=== PATIENT | male | born 1950 | race Caucasian/White ===

== ENCOUNTER 2022-03-16 11:24 | Emergency (ER) | payer OTHER, SELFPAY ==
[2022-03-16 11:34] VITALS: BP 152/91; PULSE 87; RESP 20; TEMP 36.3; O2SAT 96; BMI 42.4
--- NOTE | 2022-03-16 11:41 | DI.RAD.S_ITS ---
PROCEDURE: XR KNEE LT 3V INDICATIONS: pain. TECHNIQUE: 3 views of the knee were acquired. COMPARISON: None. FINDINGS: Bones: No fractures or dislocations. No suspicious bony lesions. Tricompartment osteophytes. Tricompartment joint space loss. Soft tissues: Moderate joint effusion. No suspicious soft tissue calcifications. IMPRESSION: Degenerative arthritis, knee joint effusion. No evidence acute bony abnormality of the left knee. Comment: If clinically suspect internal derangement, knee MRI may be helpful. Dictated by: Angel Mora M.D. on 03/16/2022 at 12:02 Approved by: Angel Moar M.D. on 03/16/2022 at 12:03
--- NOTE | 2022-03-16 14:10 | ED_ITS ---
HPI - Extremity Problem General Chief complaint: Extremity Problem,Nontraumatic Stated complaint: outside of lt knee did something to it Time Seen by Provider: 03/16/22 13:09 Source: patient Mode of arrival: Family Vehicle History of Present Illness HPI Narrative: This is a 71-year-old male with history of atrial flutter and atrial fibrillation, two weeks ago with AFib with RVR and was worked up for a CVA without findings of one, anticoagulated on warfarin and presents to the emergency department for left-sided knee pain and sensation of instability on walks and this started yesterday. Patient denies a history of knee pain in the past but endorses having a history of arthritis, patient states that his INR was elevated two days ago to 3.3, he is on reduced warfarin dosing of 5 mg for four days. His daily normal dosing is 7 mg daily. States that he has not had any new trauma of his left knee, complains that is worse in the morning and after periods of rest, feel stiff, when ambulating he endorses feeling of instability. He denies any sensation changes, fever, medial or lateral pain, states that is in the middle and feels very sore. He has tried Tylenol, Voltaren gel, states that he has tried oxycodone which also did not help much for his pain. Patient denies any redness, swelling, streaking, or concern for infection. Patient denies any new lower extremity edema, denies any shortness of breath, chest pain difficulty breathing or symptoms of illness. Related Data Home Medications Medication Instructions Recorded Confirmed aspirin 81 mg chewable tablet ##0 08/24/16 atorvastatin 10 mg tablet (Lipitor) ##0 08/24/16 calcium citrate 200 mg (950 mg) ##0 08/24/16 tablet (Calcitrate) hydrochlorothiazide 12.5 mg capsule ##0 08/24/16 multivitamin (Multiple Vitamins ##0 08/24/16 tablet) Previous Rx's Medication Instructions Recorded gabapentin 300 mg capsule 300 mg PO QHS #30 caps 12/02/16 (Neurontin) hydrocodone 5 mg-acetaminophen 325 1 tab PO Q6H PRN #15 tabs 12/02/16 mg tablet ([place]) diclofenac sodium 3 % topical gel 1 applic topical BID PRN knee pain 03/16/22 #100 grams hydrocodone 5 mg-acetaminophen 325 1 tab PO BID PRN pain #14 tabs 03/16/22 mg tablet Allergies Allergy/AdvReac Type Severity Reaction Status Date / Time Sulfa (Sulfonamide Allergy Unknown Can't Verified 03/16/22 11:39 Antibiotics) remmeber, [SULFA (SULFONAMIDE maybe ANTIBIOTICS)] swelling. narcotic meds Allergy Unknown hallucinati Uncoded 03/16/22 11:39 ons Review of Systems Review of Systems Narrative: General: denies fever, chills, malaise, sweats, fatigue Head/Neck: denies headache, neck pain, dizziness Eyes: denies visual changes, eye pain Cardio: denies chest pain, palpitations, edema Respiratory: denies dyspnea, cough, orthopnea GI: denies abdominal pain, nausea, vomiting, or diarrhea : denies dysuria, hematuria, urinary retention, frequency or incontinence MSK: denies joint pain, muscle weakness Skin: denies rash, itching, skin lesions or other Neuro: denies numbness, tingling Exam Narrative Exam Narrative: Independently reviewed vitals signs and nursing notes. General: cooperative, comfortable, in no acute distress, well groomed, overweight, using a walker to ambulate and limping on his left leg Head: atraumatic, symmetrical facial expressions Neck: supple Eyes: equal round and reactive, EOMI, conjunctiva normal Nose: nares patent, no rhinorrhea Mouth/Throat: moist mucus membranes Cardiovascular: regular rate and rhythm, S1-S2 without murmur, no peripheral edema, warm extremities Respiratory: normal effort, able to speak in complete sentences, no audible wheezing, stridor, or rales. No retractions or tachypnea. GI: abdomen soft, nontender to palpation, nondistended, no masses, no exquisite tenderness with exam, without guarding or rebound. MSK: moves all extremities, neurovascularly intact, no weakness, normal tone, no discoloration or erythema notable to left knee, is mildly enlarged however difficult to evaluate suprapatellar edema or not. No tenderness over LCL, MCL, patellar tendon, Nancie test negative. Distal PT and DP pulses are palpable, cap refills brisk, extremities warm without lower extremity edema. Skin: brisk capillary refill, no rash, no erythema Neuro: normal speech and cognition, A&O x3 Psych: mental status is grossly normal, congruent mood, normal affect, pleasant and cooperative Initial Vital Signs Initial Vital Signs: Vital Signs Temperature 97.3 F L 03/16/22 11:34 Pulse Rate 87 03/16/22 11:34 Respiratory Rate 20 03/16/22 11:34 Blood Pressure 152/91 H 03/16/22 11:34 Pulse Oximetry 96 03/16/22 11:34 Oxygen Delivery Method 03/16/22 11:34 Course Orders Ordered: Discontinued Medications Hydrocodone Bitart/Acetaminophen (Hydrocodone/Acet 5/325 Tablet) 1 tab PO NOW ONE Stop: 03/16/22 13:28 Last Admin: 03/16/22 14:13 Dose: 1 tab Documented By: BEAN Vital Signs Vital signs: Vital Signs - 8 hr 03/16/22 15:04 Pulse Rate 81 Respiratory Rate 18 Blood Pressure 132/78 Pulse Oximetry 96 Oxygen Delivery Method Room Air MDM - Extremity (Nontraumatic) Lab Data Lab results narrative: INR is elevated at 3.9 Labs: Lab Results 03/16/22 Range/Units 14:40 PT 45.5 H (10.1-12.7) SECONDS INR 3.9 H (0.9-1.3) Imaging Data Extremity x-ray #1: Radiologist's Impression: PROCEDURE:? XR KNEE LT 3V ? INDICATIONS:? pain. ? TECHNIQUE:? 3 views of the knee were acquired.? ? COMPARISON:? None. ? FINDINGS:? ? Bones:? No fractures or dislocations.? No suspicious bony lesions.? Tricompartment osteophytes.? Tricompartment joint space loss. ? Soft tissues:? Moderate joint effusion.? No suspicious soft tissue calcifications.? ? ? IMPRESSION:? Degenerative arthritis, knee joint effusion.? No evidence acute bony abnormality of the left knee. ? Comment:? If clinically suspect internal derangement, knee MRI may be helpful. ? ? Dictated by: Angel Mora M.D. on 03/16/2022 at 12:02 ? ? Approved by: Angel Moar M.D. on 03/16/2022 at 12:03 ? [facility] Narrative Medical decision making narrative: This is a 71-year-old male who presents to the emergency department for left- sided knee pain which he states was painful yesterday when he woke up and is worse today after ambulating. Patient has a history atrial fibrillation with recent AFib with RVR two weeks ago with a heart rate over 120, patient had to have his metoprolol increased to double what he was on previously to get his heart rate down and patient endorses feeling weak, having headache and feeling crummy due to the increase of his metoprolol dosing. Since this happened, patient states his INR was elevated two days ago at 3.3, he states this is not happened before, he normally takes 7 mg of warfarin daily however he has been on 5 mg for the last two days for this elevated INR. Today his INR is 3.9. Con sultation with the anticoagulation clinic at [facility] and was transferred to the pharmacist to discuss whether not to treat patient with warfarin, she was recommending that I continue dosing at 4 mg but I disagree with this, and encouraging him to hold his warfarin tonight, hold it tomorrow night, had his INR drawn on Saturday at any lab that he can not find if he can, I gave him a written order to have his INR drawn if he can find this. Otherwise to also hold his warfarin Saturday night and go to his scheduled INR draw on Saturday, this will hopefully get him into therapeutic range so that can resume his warfarin. Patient endorses undesirable symptoms from his high doses of metoprolol including fatigue, headache, feeling slowed down. I encouraged patient to stay hydrated, return to the emergency department for any new or worsening symptoms, his left knee was wrapped in a thick Marcello bandage, he has a walker, cane, and walking sticks for assistive walking devices. Patient's knee x-ray shows degenerative osteoarthritis, and a moderate effusion without any bony abnormality. I have Encouraged him to follow-up with orthopedics in 1-2 weeks for evaluation. First to treat his supratherapeutic INR, avoid falling, use an assistive device for ambulation at all times, keep his knee wrapped in Marcello bandage to help support it, decrease ambulation to ambulating with weight-bearing as tolerated and light mobility around the house instead of long walks to help prevent his arthritic flare from worsening. This could be hemarthrosis due to his elevated INR, he does not have any trauma history with this knee, this is most likely a joint effusion but could also be blood. Patient was given strict return precautions to return to the emergency department for any bleeding anywhere, any worsening pain or swelling that is causing worsening sensation or a considerable fall risk. Patient understands to hold his warfarin tonight, tomorrow, and Saturday night and will have his INR d rawn on Saturday. Otherwise, patient understands that we can draw his INR here in the emergency department and recheck him if he presents in the emergency department. Patient states understanding, he was given diclofenac gel for topical remedy and comfort, hydrocodone for knee pain, and encouraged him to use Tylenol in addition to this but do not go beyond 3 g in 24 hours. Patient is appropriate and amenable to discharge home. Vital signs are stable on repeat examination is unremarkable. Patient has been informed of results. Patient has been given strict return to ER precautions for any new or worsening symptoms. Patient understands to follow up closely with outpatient providers as instructed. Patient understands plan and agrees to discharge home. All questions and concerns answered at this time. Discharge Plan Departure Patient Disposition: Home Clinical Impression: Supratherapeutic INR, Effusion of knee joint, left Degenerative joint disease of knee, left Qualifiers: Osteoarthritis type: primary Qualified Code(s): M17.12 - Unilateral primary osteoarthritis, left knee Instructions: Osteoarthritis, DI for Arthralgia, DI for Knee Effusion Activity Restrictions/Additional Instructions: *You have been diagnosed with degenerative arthritis and a knee joint effusion of your left knee, there was no evidence of acute bony abnormality of the left knee on x-ray. Please use a thick Marcello bandage to help stabilize your knee especially when ambulating, also use an assistive walking device like a cane or walker so that you are not continuing to flare up a flare. Try to be nice to your knee, and do gentle walking without overdoing it for short periods of time frequently. Ice can be helpful, I will send a stronger form of Voltaren gel to your pharmacy to try. Please follow-up with [facility] about the future of your left knee if it does not improve in the next couple of days. Your INR today is 3.9. Please hold your warfarin for the weekend. Please have your INR drawn on Saturday. Please do not take any warfarin until you have had your INR drawn, if you can find a lab open on Saturday, please go to one and have it checked, you may go there tomorrow if your itching to know what it is but I do not believe it will be less than three. Do not worry about it too much, I just want to prevent it from getting any higher. Thank you for your patience today, sorry it was a long day. If anything is worrisome, please come back to the emergency department. *What to do: *Please continue to take your regular medications as directed. [x ] New medication prescriptions sent to your pharmacy: [[facility] ] [ ] New medication written as a paper prescription [ ] No new medications given *Please follow up with your primary care provider in 2-3 days, call for an appointment. Let them know you were seen in the Emergency Department and that we asked that you be seen for follow-up. We will electronically transmit a record of today's note if your PCP is in our system *If you do not have a primary care provider please contact [phone] to establish care with one of the [facility] primary care providers. *Return to Emergency Department if you should have any new, worsening or concerning symptoms, such as [fever greater than 101F, chills, worsening pain, persistent vomiting or other bothersome symptoms] Prescriptions: New hydrocodone-acetaminophen 5-325 mg tablet 1 tab PO BID PRN (Reason: pain) Qty: 14 0RF diclofenac sodium 3 % gel 1 applic topical BID PRN (Reason: knee pain) Qty: 100 0RF Rx Instructions: Please apply to left knee up to 4 times daily as needed for knee pain. Please do not apply to multiple joints at the same time. No Action multivitamin [Multiple Vitamins] tablet Qty: 0 atorvastatin [Lipitor] 10 mg tablet Qty: 0 hydrochlorothiazide 12.5 mg capsule Qty: 0 aspirin 81 mg tablet,chewable Qty: 0 calcium citrate [Calcitrate] 200 mg (950 mg) tablet Qty: 0 hydrocodone-acetaminophen [[place]] 5 MG/325 MG tablet 1 tab PO Q6H PRNQty: 15 0RF gabapentin [Neurontin] 300 MG capsule 300 mg PO QHS Qty: 30 0RF Referrals: [facility] [Provider Group] - 5-7 days Visit Report Forms: Patient Portal/API
[2022-03-16] MEDS: HYDROCODONE/ACET 5/325 TABLET 1 TAB PO (14:13)
[2022-03-16 14:54] LABS: INR 3.9 (0.9-1.3); Prothrombin Time 45.5 SECONDS (10.1-12.7)
[2022-03-16 15:04] VITALS: BP 132/78; PULSE 81; RESP 18; O2SAT 96
== END 2022-03-16 15:13 | disposition home or self-care (01) ==
PROVIDERS: Emergency Provider Nurse Practitioner Critical Care Medicine
DX: R79.1 Abnormal coagulation profile (principal); M25.462 Effusion, left knee; M17.12 Unilateral primary osteoarthritis, left knee
CPT/HCPCS: 73562; 85610; 99283

== ENCOUNTER → 2024-03-13 12:01 | Outpatient (CLI) | payer OTHER, SELFPAY ==
--- NOTE | 2024-03-13 12:02 | DI.RAD.S_ITS ---
PROCEDURE: XR LUMBAR SPINE 2-3V INDICATIONS: Lumbar pain TECHNIQUE: 3 views of the lumbar spine were acquired. COMPARISON: None. FINDINGS: Bones: 5 [id number] vertebrae are present. Convex left scoliosis, Marte angle of 18?, centered at L2. No vertebral body compression fractures. No suspicious bony lesions. Grade 1 retrolisthesis of L2 on L3 and L1 on L2. Severe disc height loss at L3-4, L2-3. Moderate to severe disc height loss at remaining levels. Diffuse facet arthrosis. Soft tissues: Overlying bowel gas pattern is normal. No suspicious soft tissue calcifications. Prior hernia repair and cholecystectomy clips. IMPRESSION: Moderate to severe, multilevel degenerative disc disease and diffuse facet arthrosis. Convex left scoliosis. Dictated by: Jens Louis M.D. on 03/13/2024 at 13:24 Approved by: Jens Louis M.D. on 03/13/2024 at 13:54
== END ==
PROVIDERS: Referring Provider Nurse Practitioner Family; Visit Provider Nurse Practitioner Family
DX: S39.012A Strain of muscle, fascia and tendon of lower back, initial encounter (principal); M47.816 Spondylosis without myelopathy or radiculopathy, lumbar region; M51.36 Other intervertebral disc degeneration, lumbar region; M41.9 Scoliosis, unspecified; X58.XXXA Exposure to other specified factors, initial encounter
CPT/HCPCS: 72100

== ENCOUNTER 2024-04-07 23:16 | Emergency (ER) | payer OTHER, SELFPAY ==
[2024-04-07 23:37] VITALS: BP 164/86; PULSE 67; RESP 19; TEMP 36.9; O2SAT 98; BMI 44.0
[2024-04-08 02:26] VITALS: BP 171/91; PULSE 72; RESP 18; TEMP 36.6; O2SAT 99
--- NOTE | 2024-04-08 02:26 | ED_ITS ---
HPI - Back Pain/Injury General Chief Complaint: Back Pain/Injury Stated Complaint: severe back pain Time Seen by Provider: 04/08/24 02:25 Source: patient History of Present Illness HPI Narrative: 74-year-old male with a history of atrial flutter and atrial fibrillation on warfarin who presents with complaint of acute on chronic low back pain. Patient has had back pain increasing for over a month. He did not have any trauma falls or injuries. Patient had x-rays at an urgent Care was told that he had spinal stenosis on his x-rays. Patient notes that has gone to PT for times after seeing his primary care physician. Saw them yesterday or Saturday04/07/2024 had physical therapy was increasing his pain while he was actively involved. Patient was told by his PT that he would likely benefit from cortisone shots. Patient notes that his pain has improved with prednisone, he had 6 days' worth about 3 or 4 weeks ago. Stopped for about a week and was put on a tapering dose by his primary care physician. Has since stopped that and pain has increased again. He is taken Tylenol up to 3000 mg in 24 hours. He is normally on gabapentin and had his dose doubled in his now taking 300 mg twice daily by his primary care physician. He has been referred to Dr. Salamanca for his back but just received the referral in the mail yesterday. States no fevers or chills. States does have some numbness and tingling going down his right leg, he states it is pinky toe felt like it had maybe fallen off yesterday. He notes when he walks for long periods of time both legs feel sort of tingling at the bottom. Pain has been increased down the right side. He states left sides actually improved with physical therapy. Patient states no loss of bowel or bladder control, no saddle anesthesia. He does note he was feeling nauseated this evening but states he thinks might be from the pain. He does note he was seated in the waiting room for some time and that has also increased his pain this evening. Last dose of Tylenol was at 7:30 p.m.. Related Data Home Medications Medication Instructions Recorded Confirmed calcium citrate 200 mg (950 mg) ##0 08/24/16 03/16/24 tablet (Calcitrate) hydrochlorothiazide 12.5 mg capsule ##0 08/24/16 03/16/24 multivitamin (Multiple Vitamins ##0 08/24/16 03/16/24 tablet) atorvastatin 20 mg tablet 20 mg PO DAILY 03/13/24 03/16/24 calcipotriene 0.005 % topical cream 1 applic topical QAM 03/13/24 03/16/24 fluorouracil 5 % topical cream 1 applic topical BID 03/13/24 03/16/24 lisinopril 5 mg tablet 5 mg PO DAILY 03/13/24 03/16/24 metoprolol tartrate 25 mg tablet 25 mg PO BID 03/13/24 03/16/24 triamcinolone acetonide 0.1 % 1 applic topical 03/13/24 03/16/24 topical ointment warfarin 2 mg tablet mg PO 03/13/24 03/16/24 warfarin 5 mg tablet 5 mg PO DAILY 03/13/24 03/16/24 Previous Rx's Medication Instructions Recorded gabapentin 300 mg capsule 300 mg PO QHS #30 caps 12/02/16 (Neurontin) hydrocodone 5 mg-acetaminophen 325 1 tab PO Q6H PRN #15 tabs 12/02/16 mg tablet ([place]) diclofenac sodium 3 % topical gel 1 applic topical BID PRN knee pain 03/16/22 #100 grams hydrocodone 5 mg-acetaminophen 325 1 tab PO BID PRN pain #14 tabs 03/16/22 mg tablet gabapentin 300 mg capsule 300 mg PO Q8H #30 caps 04/08/24 prednisone 10 mg tablets in a dose See Rx Instructions PO .COMPLEX 04/08/24 pack #21 ea tramadol 50 mg tablet 50 mg PO Q6H PRN pain #10 tabs 04/08/24 Allergies Allergy/AdvReac Type Severity Reaction Status Date / Time Sulfa (Sulfonamide Allergy Unknown Can't Verified 03/16/24 13:08 Antibiotics) remmeber, [SULFA (SULFONAMIDE maybe ANTIBIOTICS)] swelling. narcotic meds Allergy Unknown hallucinati Uncoded 03/16/24 13:08 ons Review of Systems Review of Systems ROS Unobtainable: All systems reviewed & are unremarkable except as noted in HPI and below Patient History Social History Smoking Status: Never smoker Smoking Status: Never smoker alcohol intake frequency: a few times a month Substance Use Type: does not use Exam Narrative Exam Narrative: GENERAL: Alert and oriented x three, obese male in moderate distress. HEENT: Head normocephalic, atraumatic, EOMI, pupils reactive, face symmetric, moist mucous membranes NECK: Supple, full range of motion CARDIOVASCULAR: Regular rate and rhythm without murmurs, rubs or gallops. RESPIRATORY: Breath sounds equal bilaterally, no wheezes rales or rhonchi. ABDOMEN: Soft, nontender. Normoactive bowel sounds all 4 quadrants. No guarding or rebound, rigidity, no mass : No CVA tenderness BACK: No cervical, thoracic or lumbar vertebral point tenderness. Patient has decreased range of motion. Patient's gait is [antalgic/normal]. Rectal exam is deferred. Muscle strength is 5/5 in lower extremities, although slightly decreased dorsiflexion on the right. DTRs 2/floor bilateral lower extremities. Dorsalis pedis and tibialis pulses are 2+ and lower extremities. Sensation is intact in the lower extremities. EXTREMITIES: Normal range of motion, no clubbing or edema. Neurovascularly intact NEUROLOGICAL: Cranial nerves II through XII grossly intact. Moving all extremities SKIN: Warm, dry, no petechiae, no rashes or lesions. Initial Vital Signs Initial Vital Signs: Vital Signs Temperature 98.4 F 04/07/24 23:37 Pulse Rate 67 04/07/24 23:37 Respiratory Rate 19 04/07/24 23:37 Blood Pressure 164/86 H 04/07/24 23:37 Pulse Oximetry 98 04/07/24 23:37 Oxygen Delivery Method Room Air 04/07/24 23:37 Course Orders Ordered: Discontinued Medications Acetaminophen (Acetaminophen 325 Mg Tablet) 975 mg PO NOW ONE Stop: 04/08/24 02:50 Last Admin: 04/08/24 03:14 Dose: 975 mg Documented By: NORMA Ondansetron HCl (Ondansetron 4 Mg Odt) 4 mg SL NOW ONE Stop: 04/08/24 02:50 Last Admin: 04/08/24 03:15 Dose: Not Given Documented By: NORMA Prednisone (Prednisone 20 Mg Tablet) 60 mg PO NOW ONE Stop: 04/08/24 02:50 Last Admin: 04/08/24 03:14 Dose: 60 mg Documented By: NORMA Tramadol HCl (Tramadol 50 Mg Tablet) 50 mg PO NOW ONE Stop: 04/08/24 03:37 Last Admin: 04/08/24 03:41 Dose: 50 mg Documented By: MAUREEN Vital Signs Vital signs: Vital Signs - 8 hr 04/07/24 23:37 04/08/24 02:26 04/08/24 03:47 Temperature 98.4 F 97.9 F Pulse Rate 67 72 70 Respiratory Rate 19 18 18 Blood Pressure 164/86 H 171/91 H 141/89 H Pulse Oximetry 98 99 97 Oxygen Delivery Method Room Air Room Air Room Air MDM - Back Pain/Injury MDM Narrative Medical decision making narrative: 74-year-old with worsening low back pain with radicular symptoms. Patient does not have any red flag symptoms felt necessitate MRI emergently or emergent surgery. He is in process of setting up referral to follow up for his back. He has had improvement when he has been on prednisone but when it has been stopped symptoms return. He has been taking Tylenol up to 3000 mg daily. He just had his gabapentin increased to 300 mg b.i.d.. States he does not tolerate narcotics well they made him hallucinate at with IV narcotics feel very weird at with oral narcotics. Discussed with patient he would like to return home, we will give a dose of Tylenol here, initial dose of oral prednisone with a tapering prescription. Discussed can also increase his gabapentin to see if this is helpful for his symptoms and need for follow-up. Given short course of oral narcotics but to use with caution as patient has had hallucinations in the past with IV narcotics and felt ?weird? with oral narcotics in the past. Did discuss red flag symptoms and reasons to return emergently. Discharge Plan Departure Patient Disposition: Home Clinical Impression: Low back pain Instructions: DI for Low Back Pain Activity Restrictions/Additional Instructions: Follow-up for recheck I do think you would benefit from interventions on your back. Please follow up with Dr. Salamanca. You can take Tylenol up to a 1000 mg every 6 hours as needed. Take oral steroids as prescribed. You can increase your gabapentin up to 300 mg three times daily, if needed you can increase again to 600mg three times daily. If this is inadequate to contact your primary care physician and they can titrate upwards as needed. You can take tramadol 1 tablet every 6 hours as needed for pain. This medication can make you sleepy do not drive, perform hazardous activities or make any major decisions while taking it. This medication will make you constipated please take a stool softener once to twice daily until stools are soft and regular. Prescription sent to [facility] in [place]. Please return for fevers, rapidly worsening symptoms, new weakness, loss of bowel or bladder control, saddle anesthesia or numbness in your groin, if you can not lift or move her leg or other new or concerning changes. Prescriptions: New prednisone 10 mg tablets,dose pack See Rx Instructions .ROUTE .COMPLEX Qty: 21 0RF Rx Instructions: 6 tabs p.o. x1 day, then 5 tabs p.o. x1 day, then 4 tablets p.o. x1 day, then 3 tabs p.o. x1 day, then 2 tabs p.o. x1 day, then 1 tab p.o. x1 day gabapentin 300 mg capsule 300 mg PO Q8H Qty: 30 0RF tramadol 50 mg tablet 50 mg PO Q6H PRN (Reason: pain) Qty: 10 0RF No Action warfarin 2 mg tablet PO metoprolol tartrate 25 mg tablet 25 mg PO BID atorvastatin 20 mg tablet 20 mg PO DAILY warfarin 5 mg tablet 5 mg PO DAILY lisinopril 5 mg tablet 5 mg PO DAILY calcipotriene 0.005 % cream 1 applic topical QAM fluorouracil 5 % cream 1 applic topical BID triamcinolone acetonide 0.1 % ointment 1 applic topical multivitamin [Multiple Vitamins] tablet Qty: 0 hydrochlorothiazide 12.5 mg capsule Qty: 0 calcium citrate [Calcitrate] 200 mg (950 mg) tablet Qty: 0 hydrocodone-acetaminophen [[place]] 5 MG/325 MG tablet 1 tab PO Q6H PRNQty: 15 0RF gabapentin [Neurontin] 300 MG capsule 300 mg PO QHS Qty: 30 0RF hydrocodone-acetaminophen 5-325 mg tablet 1 tab PO BID PRN (Reason: pain) Qty: 14 0RF diclofenac sodium 3 % gel 1 applic topical BID PRN (Reason: knee pain) Qty: 100 0RF Rx Instructions: Please apply to left knee up to 4 times daily as needed for knee pain. Please do not apply to multiple joints at the same time. Referrals: Wander Tpaia DO [Physician] - Shawn Salamanca MD [Non-Staff] - Miscellaneous,DoctorMD [Primary Care Provider] - Stand Alone Forms: Patient Portal/API
[2024-04-08] MEDS: predniSONE 20 MG TABLET 60 MG PO (03:14)
[2024-04-08] MEDS: ACETAMINOPHEN 325 MG TABLET 975 MG PO (03:14)
[2024-04-08] MEDS: TRAMADOL 50 MG TABLET PO (03:41)
[2024-04-08 03:47] VITALS: BP 141/89; PULSE 70; RESP 18; O2SAT 97
== END 2024-04-08 03:48 | disposition home or self-care (01) ==
PROVIDERS: Emergency Provider Emergency Medicine
DX: M54.50 Low back pain, unspecified (principal)
CPT/HCPCS: 99283

== ENCOUNTER 2024-10-12 11:30 | Emergency (ER) | payer OTHER, SELFPAY ==
[2024-10-12] VITALS (13 sets, daily range): BP systolic 127–151; BP diastolic 65–80; PULSE 54–59; RESP 12–21; TEMP 36.6; O2SAT 94–99; BMI 41.0
--- NOTE | 2024-10-12 12:09 | EKG_ITS ---
[facility] [address] [address] Test Date: 2024-10-12 Pat Name: Papa Medina Department: [facility] Room: Gender: Male Pediatric Geneticist: : 1950 Requested By: Order Number: [id number] Reading MD: Andrew Frazier MD Measurements Intervals [place] Rate: 58 P: MD: QRS: -2 QRSD: 104 T: -6 QT: 418 QTc: 410 Interpretive Statements Atrial fibrillation with slow ventricular response Electronically Signed On 10-12-2024 16:46:33 PST by Andrew Frazier MD
--- NOTE | 2024-10-12 12:09 | DI.RAD.S_ITS ---
PROCEDURE: XR CHEST 1V INDICATIONS: chest pain TECHNIQUE: One view of the chest was acquired. COMPARISON: None. FINDINGS: Surgical changes and devices: None. Lungs and pleura: Lungs are clear. No pleural effusions or pneumothorax. Mediastinum: Mediastinal contours appear normal. Heart size is normal. Bones and chest wall: No suspicious bony lesions. Overlying soft tissues appear unremarkable. IMPRESSION: No acute cardiopulmonary abnormality is seen. Dictated by: Jens Louis M.D. on 10/12/2024 at 12:45 Approved by: Jens Louis M.D. on 10/12/2024 at 12:45
[2024-10-12 12:41] LABS: Add Manual Diff / Slide Review NO; Basophils Absolute Auto 0 /uL (0-100); Basophils Percent Auto 0.3 % (0-2); Eosinophils Absolute Auto 0 /uL (0-450); Eosinophils Percent Auto 0.6 % (2-4); Hematocrit 35.4 % (41-53); Hemoglobin 11.9 g/dL (13.5-17.5); Lymphocytes Absolute Auto 800 /uL (1100-4500); Lymphocytes Percent Auto 9.4 % (25-40); Mean Corpuscular HGB Conc 33.6 % (30-36); Mean Corpuscular Hemoglobin 31.9 PG (26-34); Monocytes Absolute Auto 400 /uL (0-900); Monocytes Percent Auto 5.2 % (3-14); Neutrophils Absolute Auto 6900 /uL (1500-7000); Neutrophils Percent Auto 84.5 % (50-75); Platelet Count 361 X10^3/uL (150-400); Red Blood Cell Count 3.73 X10^6/uL (4.5-5.9); White Blood Cell Count 8.2 X10^3/uL (4.5-11.0)
[2024-10-12 12:49] LABS: INR 4.4 (0.9-1.3); Prothrombin Time 48.4 SECONDS (9.4-12.5)
[2024-10-12 12:52] LABS: PTT Partial Thromboplastin Tim 46 SECONDS (25.1-36.5)
[2024-10-12 13:00] LABS: Alanine Aminotransferase 25 IU/L (<50); Albumin 3.8 g/dL (3.5-5.0); Albumin Globulin Ratio 1.3 (1.0-2.8); Alkaline Phosphatase 88 U/L (38-126); Aspartate Aminotransferase 36 IU/L (17-59); BUN Creatinine Ratio 19.7 (6-22); Bilirubin Total 0.4 mg/dL (0.2-1.3); Blood Urea Nitrogen 15 mg/dL (9-20); Calcium 9.4 mg/dL (8.4-10.2); Carbon Dioxide 28 mmol/L (22-32); Chloride 105 mmol/L (98-107); Creatine Kinase 25 U/L (55-170); Estimated Glomerular Filt Rate > 60 mL/min (>60); Globulin 2.9 g/dL (1.7-4.1); Glucose 104 mg/dL (80-110); HEMOLYSIS < 15 (0-50); Lipase 47 U/L (23-300); Potassium 4.2 mmol/L (3.4-5.1); Sodium 138 mmol/L (137-145); Total Protein 6.7 g/dL (6.3-8.2)
--- NOTE | 2024-10-12 13:02 | ED.DIZZY ---
HPI - Dizziness General Chief Complaint: Dizziness Stated Complaint: severe virtego, recent spinal surgery 3wks ago. Time Seen by Provider: 10/12/24 12:41 Source: patient and family Mode of arrival: Ambulatory History of Present Illness HPI Narrative: Patient is a 74-year-old male history of vertigo atrial fibrillation/atrial flutter on warfarin presenting today with dizziness. He reports that he has been dizzy for the last 3-4 days. He has not seeing double he sometimes feels nauseous but isn't actively vomiting he has no numbness tingling or weakness. He recently had a lumbar fusion at [place] about 3 weeks ago. He has permanent left foot drop. He has been getting around with a walker. He has been doing okay. He actually had his bjorn removed about 3 days ago. 1 area started draining. He reports it is draining quite a bit in saturates the bandage. No fever or chills. He says that they took a picture of it and sent it to the physician but never heard back. Related Data Home Medications Medication Instructions Recorded Confirmed calcium citrate (Calcitrate) ##0 08/24/16 03/16/24 hydrochlorothiazide 12.5 mg capsule ##0 08/24/16 03/16/24 multivitamin (Multiple Vitamins ##0 08/24/16 03/16/24 tablet) atorvastatin 20 mg tablet 20 mg PO DAILY 03/13/24 03/16/24 calcipotriene 0.005 % topical cream 1 applic topical QAM 03/13/24 03/16/24 fluorouracil 5 % topical cream 1 applic topical BID 03/13/24 03/16/24 lisinopril 5 mg tablet 5 mg PO DAILY 03/13/24 03/16/24 metoprolol tartrate 25 mg tablet 25 mg PO BID 03/13/24 03/16/24 triamcinolone acetonide 0.1 % 1 applic topical 03/13/24 03/16/24 topical ointment warfarin 2 mg tablet mg PO 03/13/24 03/16/24 warfarin 5 mg tablet 5 mg PO DAILY 03/13/24 03/16/24 Previous Rx's Medication Instructions Recorded gabapentin 300 mg capsule 300 mg PO QHS #30 caps 12/02/16 (Neurontin) hydrocodone 5 mg-acetaminophen 325 1 tab PO Q6H PRN #15 tabs 12/02/16 mg tablet ([place]) diclofenac sodium 3 % topical gel 1 applic topical BID PRN knee pain 03/16/22 #100 grams hydrocodone 5 mg-acetaminophen 325 1 tab PO BID PRN pain #14 tabs 03/16/22 mg tablet gabapentin 300 mg capsule 300 mg PO Q8H #30 caps 04/08/24 prednisone 10 mg tablets in a dose See Rx Instructions PO .COMPLEX 04/08/24 pack #21 ea tramadol 50 mg tablet 50 mg PO Q6H PRN pain #10 tabs 04/08/24 amoxicillin 875 mg-potassium 1 tab PO BID #14 tabs 10/12/24 clavulanate 125 mg tablet Allergies Allergy/AdvReac Type Severity Reaction Status Date / Time Sulfa (Sulfonamide Allergy Unknown Can't Verified 03/16/24 13:08 Antibiotics) remmeber, [SULFA (SULFONAMIDE maybe ANTIBIOTICS)] swelling. narcotic meds Allergy Unknown hallucinati Uncoded 03/16/24 13:08 ons Patient History Social History Smoking Status: Never smoker Smoking Status: Never smoker alcohol intake frequency: a few times a month Exam Initial Vital Signs Initial Vital Signs: Vital Signs Temperature 97.9 F 10/12/24 12:01 Pulse Rate 58 L 10/12/24 12:01 Respiratory Rate 18 10/12/24 12:01 Blood Pressure 127/72 10/12/24 12:01 Pulse Oximetry 94 10/12/24 12:01 Oxygen Delivery Method Room Air 10/12/24 12:01 GENERAL: Alert 74-year-old male sitting upright and in [no acute] distress. HEENT: Head atraumatic,EOMI, pupils reactive, no nystagmus face symmetric, [moist] mucous membranes CARDIOVASCULAR: Regular rate and rhythm without murmurs, rubs or gallops. RESPIRATORY: Breath sounds equal bilaterally, no wheezes rales or rhonchi. ABDOMEN: Soft, nontender. Normoactive bowel sounds all 4 quadrants. No guarding or rebound. EXTREMITIES: Normal range of motion, no clubbing or edema. Neurovascularly intact NEUROLOGICAL: Alert and oriented x4.Normal gait and speech. Cranial nerves II through XII grossly intact. SKIN: Incision site in lumbar area there is 1 area of dehiscence real surrounding erythema nontender there is active draining from the site cultures take it Course Orders Ordered: ED Orders 10/12/24 12:09 XR chest 1V Stat EKG-12 Lead Stat 10/12/24 12:25 Complete Blood Count AUTO DIFF Stat Comprehensive Metabolic Panel Stat Lipase Stat Magnesium Stat NT-proBNP (BNP-Adult 18+) Stat PTT Partial Thromboplastin Joaquin Stat Prothrombin Time INR Stat Troponin & CK Cardiac Panel Stat 10/12/24 13:10 Wound Culture and Gram Stain Stat 10/12/24 13:12 CT head/brain wo con Stat 10/12/24 14:30 Urine Culture Stat Urine Microscopic Stat Discontinued Medications Amoxicillin/Clavulanate Potassium (Amoxicillin/Clav 875/125 Mg) 1 tab PO NOW ONE Stop: 10/12/24 15:24 Last Admin: 10/12/24 15:48 Dose: 1 tab Documented By: AQUILES Sodium Chloride (Normal Saline 0.9%) 1,000 mls @ 1,000 mls/hr IV BOLUS PRN PRN Reason: Fluid replacement Last Infusion: 10/12/24 15:42 Dose: Infused Documented By: Admin: 10/12/24 13:33 Dose: 1,000 mls/hr Documented By: EVERTON Meclizine HCl (Meclizine Hcl 12.5 Mg Tablet) 25 mg PO NOW ONE Stop: 10/12/24 13:13 Last Admin: 10/12/24 13:32 Dose: 25 mg Documented By: EVERTON Ondansetron HCl (Ondansetron 4 Mg/2 Ml Inj) 4 mg IV NOW ONE Stop: 10/12/24 13:13 Last Admin: 10/12/24 13:32 Dose: 4 mg Documented By: EVERTON Vital Signs Vital signs: Vital Signs - 8 hr 10/12/24 12:01 10/12/24 12:16 10/12/24 12:17 Temperature 97.9 F Pulse Rate 58 L 58 L Respiratory Rate 18 Blood Pressure 127/72 144/69 H Pulse Oximetry 94 98 Oxygen Delivery Method Room Air 10/12/24 12:17 10/12/24 12:30 10/12/24 12:30 Temperature Pulse Rate 59 L 55 L Respiratory Rate 12 Blood Pressure 129/65 Pulse Oximetry 98 96 Oxygen Delivery Method Room Air 10/12/24 13:00 10/12/24 13:01 10/12/24 13:01 Temperature Pulse Rate 55 L 54 L Respiratory Rate 15 14 Blood Pressure 147/66 H Pulse Oximetry 98 98 Oxygen Delivery Method 10/12/24 13:30 10/12/24 13:31 10/12/24 13:31 Temperature Pulse Rate 55 L 55 L Respiratory Rate 15 15 Blood Pressure 139/73 Pulse Oximetry 98 98 Oxygen Delivery Method 10/12/24 14:19 10/12/24 14:20 10/12/24 14:20 Temperature Pulse Rate 58 L 58 L Respiratory Rate 20 Blood Pressure 151/72 H Pulse Oximetry 96 98 Oxygen Delivery Method Room Air 10/12/24 14:30 10/12/24 14:30 10/12/24 15:00 Temperature Pulse Rate 57 L Respiratory Rate 21 Blood Pressure 150/73 H 136/80 Pulse Oximetry 99 Oxygen Delivery Method 10/12/24 15:00 10/12/24 15:30 10/12/24 15:30 Temperature Pulse Rate 56 L 55 L Respiratory Rate 14 13 Blood Pressure 142/70 H Pulse Oximetry 99 99 Oxygen Delivery Method MDM - Dizziness Lab Data 10/12/24 12:25 10/12/24 12:25 Labs: Lab Results 10/12/24 10/12/24 Range/Units 12:25 14:30 WBC 8.2 (4.5-11.0) X10^3/uL RBC 3.73 L (4.5-5.9) X10^6/uL Hgb 11.9 L (13.5-17.5) g/dL Hct 35.4 L (41-53) % MCV 95.0 (80-100) fL MCH 31.9 (26-34) PG MCHC 33.6 (30-36) % RDW 15.0 H (11.6-14.8) % Plt Count 361 (150-400) X10^3/uL Neut % (Auto) 84.5 H (50-75) % Lymph % (Auto) 9.4 L (25-40) % [place] % (Auto) 5.2 (3-14) % Eos % (Auto) 0.6 L (2-4) % Baso % (Auto) 0.3 (0-2) % Neut # (Auto) 6900 (1858-1425) /uL Lymph # (Auto) 800 L (2065-5193) /uL [place] # (Auto) 400 (0-900) /uL Eos # (Auto) 0 (0-450) /uL Baso # (Auto) 0 (0-100) /uL PT 48.4 H (9.4-12.5) SECONDS INR 4.4 H (0.9-1.3) APTT 46 H (25.1-36.5) SECONDS Sodium 138 (137-145) mmol/L Potassium 4.2 (3.4-5.1) mmol/L Chloride 105 (98-107) mmol/L Carbon Dioxide 28 (22-32) mmol/L BUN 15 (9-20) mg/dL Creatinine 0.76 (0.66-1.25) mg/dL Estimated GFR > 60 (>60) mL/min BUN/Creatinine Ratio 19.7 (6-22) Glucose 104 (80-110) mg/dL Calcium 9.4 (8.4-10.2) mg/dL Magnesium 2.0 (1.6-2.3) mg/dL Total Bilirubin 0.4 (0.2-1.3) mg/dL AST 36 (17-59) IU/L ALT 25 (<50) IU/L Alkaline Phosphatase 88 (38-126) U/L Total Creatine Kinase 25 L (55-170) U/L Troponin I < 0.012 (0.01-0.034) ng/mL NT-Pro-B Natriuret Pep 1570 H (<450) pg/mL Total Protein 6.7 (6.3-8.2) g/dL Albumin 3.8 (3.5-5.0) g/dL Globulin 2.9 (1.7-4.1) g/dL Albumin/Globulin Ratio 1.3 (1.0-2.8) Lipase 47 (23-300) U/L Urine RBC 5-10/hpf H (0-5/HPF) Urine WBC 5-10/hpf H (0-5/HPF) Ur Squamous Epith Cells 1-5 /hpf (0-5/HPF) Urine Bacteria Many (>30) H (None) Vol Urine Centrifuged 10ml (spun) Urine Dip Bedside Urine Glucose Negative Bedside Urine Bilirubin - Negative Bedside Urine Ketone - Negative Urine Specific [place] 1.015 Bedside Urine Occult Blood +/- Bedside Urine pH 7.5 Bedside Urine Protein - Negative Bedside Urine Urobilinogen - Negative Bedside Urine Nitrite + Positive Bedside Urine Leukocytes +++ [address] scan - head: Radiologist's Impression: PROCEDURE: CT HEAD/BRAIN WO CON INDICATIONS: dizzy elevated INR TECHNIQUE: Noncontrast 4.5 mm thick angled axial sections acquired from the foramen magnum to the vertex, with coronal and sagittal reformats. For radiation dose reduction, the following was used: automated exposure control, adjustment of mA and/or kV according to patient size. COMPARISON: [facility], CR, XR CHEST 1V, 10/12/2024, 12:10. FINDINGS: Image quality: Diagnostic. CSF spaces: Basal cisterns are patent. No extra-axial fluid collections. The ventricles are symmetric in size and shape. Brain: No intracranial bleeds or masses. There is cerebral volume loss for age, with resultant ventricular and sulcal prominence. There are periventricular and deep white matter chronic small vessel ischemic changes. There is intracranial internal carotid artery atherosclerosis. Skull and face: Calvarium and visualized facial bones appear intact, without suspicious lesions. Sinuses: Visualized sinuses and mastoids are clear. IMPRESSION: No acute intracranial hemorrhage is seen. No acute intracranial pathology. Dictated by: Darrin Cortez M.D. on 10/12/2024 at 13:31 ECG Data Attestation: I personally reviewed and interpreted this ECG as follows: Prior ECG tracings: not available for review Interpretation: Atrial fibrillation rate 58 ST changes no priors to compare MDM Narrative Medical decision making narrative: [facility] CC: Vertigo dizziness Complicating co-morbidities: Atrial fibrillation on warfarin Medical records reviewed: Previous ED visits Differential considered: Vertigo posterior stroke cellulitis, infection of surgical site Exam documented above, pertinent findings include: Lower extremity weakness bilaterally worse on left than right, wound dehiscence with some drainage on the incision and lumbar spine Lab Test results independently reviewed as above. Pertinent findings: INR 4.4 Troponin negative, BNP 1570 Urine positive for nitrates leukocytes, bacteria WBC 8.2 Electrolytes stable no ARTUR Independently reviewed EKG as above Imaging studies independently reviewed: Head CT no acute intracranial process Consultations: 14:27 Keshawn NORMAN, with Abdirashid recommends Augmentin for 1 week. He will call and make sure patient is seen in clinic in regards to his back. He was able to look at photos for when patient was seen in clinic a few days prior Treatments: IV fluids meclizine Zofran Re-evaluations: Patient is overall feeling better as far as vertigo. He is able to ambulate in the ED with his walker Discussion: 74-year-old male presenting today with vertigo. He is status post laminectomy 3 weeks. He has a small wound dehiscence in the back. No concern for deep infection. He has no leukocytosis it has not really tender. I did discuss with neurosurgery who recommended Augmentin with close outpatient follow up. I did should also treat the UTI he has. He has no sign of sepsis. UTI maybe causing some of his dizziness and vertigo as well. He has not persistently vomiting. He overall appears well and nontoxic. No new focal deficits. He does have some left leg weakness which is chronic. I discussed with patient that his INR is 4.4. We discussed holding his warfarin and not taking it for the next couple of days. Also need to get rechecked his antibiotics can alter the level. He reports that he is supposed to have it checked this week. Discharge Plan Departure Patient Disposition: Home Clinical Impression: Acute UTI, Vertigo, Surgical wound dehiscence Instructions: DI for Urinary Tract Infection (UTI) Activity Restrictions/Additional Instructions: *You have been diagnosed with UTI, vertigo, elevated INR 4.4 *What to do: At this time you will need to follow up with Neurosurgery. Starting you on suddenly called Augmentin which should help with your wound and your bladder infection. Stay hydrated and rest *Continue to take medications as directed Augmentin 875 twice a day for 7 days DO NOT take warfarin for 2 days, please have your INR rechecked this week. Antibiotics can alter the level *Follow up with your primary care provider in 2-3 days or call [phone] *Return to ER if you should have increasing dizziness nausea vomiting numbness tingling weakness or any new, worsening or concerning symptoms Prescriptions: New amoxicillin-pot clavulanate 875-125 mg tablet 1 tab PO BID Qty: 14 0RF No Action warfarin 2 mg tablet PO metoprolol tartrate 25 mg tablet 25 mg PO BID atorvastatin 20 mg tablet 20 mg PO DAILY warfarin 5 mg tablet 5 mg PO DAILY lisinopril 5 mg tablet 5 mg PO DAILY calcipotriene 0.005 % cream 1 applic topical QAM fluorouracil 5 % cream 1 applic topical BID triamcinolone acetonide 0.1 % ointment 1 applic topical multivitamin [Multiple Vitamins] tablet Qty: 0 hydrochlorothiazide 12.5 mg capsule Qty: 0 calcium citrate [Calcitrate] 200 mg (950 mg) tablet Qty: 0 hydrocodone-acetaminophen [[place]] 5 MG/325 MG tablet 1 tab PO Q6H PRNQty: 15 0RF gabapentin [Neurontin] 300 MG capsule 300 mg PO QHS Qty: 30 0RF hydrocodone-acetaminophen 5-325 mg tablet 1 tab PO BID PRN (Reason: pain) Qty: 14 0RF diclofenac sodium 3 % gel 1 applic topical BID PRN (Reason: knee pain) Qty: 100 0RF Rx Instructions: Please apply to left knee up to 4 times daily as needed for knee pain. Please do not apply to multiple joints at the same time. prednisone 10 mg tablets,dose pack See Rx Instructions .ROUTE .COMPLEX Qty: 21 0RF Rx Instructions: 6 tabs p.o. x1 day, then 5 tabs p.o. x1 day, then 4 tablets p.o. x1 day, then 3 tabs p.o. x1 day, then 2 tabs p.o. x1 day, then 1 tab p.o. x1 day gabapentin 300 mg capsule 300 mg PO Q8H Qty: 30 0RF tramadol 50 mg tablet 50 mg PO Q6H PRN (Reason: pain) Qty: 10 0RF Referrals: Miscellaneous,Doctor, MD [Primary Care Provider] - Stand Alone Forms: Patient Portal/API/Survey
[2024-10-12 13:12] LABS: NT-proBNP (BNP-Adult 18+) 1570 pg/mL (<450); Troponin I < 0.012 ng/mL (0.01-0.034)
--- NOTE | 2024-10-12 13:12 | DI.CT.S_ITS ---
PROCEDURE: CT HEAD/BRAIN WO CON INDICATIONS: dizzy elevated INR TECHNIQUE: Noncontrast 4.5 mm thick angled axial sections acquired from the foramen magnum to the vertex, with coronal and sagittal reformats. For radiation dose reduction, the following was used: automated exposure control, adjustment of mA and/or kV according to patient size. COMPARISON: [facility], CR, XR CHEST 1V, 10/12/2024, 12:10. FINDINGS: Image quality: Diagnostic. CSF spaces: Basal cisterns are patent. No extra-axial fluid collections. The ventricles are symmetric in size and shape. Brain: No intracranial bleeds or masses. There is cerebral volume loss for age, with resultant ventricular and sulcal prominence. There are periventricular and deep white matter chronic small vessel ischemic changes. There is intracranial internal carotid artery atherosclerosis. Skull and face: Calvarium and visualized facial bones appear intact, without suspicious lesions. Sinuses: Visualized sinuses and mastoids are clear. IMPRESSION: No acute intracranial hemorrhage is seen. No acute intracranial pathology. Dictated by: Darrin Cortez M.D. on 10/12/2024 at 13:31 Approved by: Darrin Cortez M.D. on 10/12/2024 at 13:32
[2024-10-12] MEDS: ONDANSETRON 4 MG/2 ML INJ IV (13:32)
[2024-10-12] MEDS: MECLIZINE HCL 12.5 MG TABLET 25 MG PO (13:32)
[2024-10-12] MEDS: SODIUM CHLORIDE 0.9% 1,000 ML 1000 ML IV (13:33)
[2024-10-12 14:55] LABS: Bacteria Urine Many (>30); RBC Urine 5-10/HPF (0-5/HPF); Urine Volume 10mL (spun); WBC Urine 5-10/HPF (0-5/HPF)
[2024-10-12 14:56] LABS: Squamous Epithelial Cell Urine 1-5 /HPF (0-5/HPF)
[2024-10-12] MEDS: AMOXICILLIN/CLAV 875/125 MG 1 TAB PO (15:48)
== END 2024-10-12 16:02 | disposition home or self-care (01) ==
PROVIDERS: Emergency Provider Emergency Medicine
DX: N39.0 Urinary tract infection, site not specified (principal); T81.31XA Disruption of external operation (surgical) wound, not elsewhere classified, initial encounter; R11.0 Nausea; Z79.01 Long term (current) use of anticoagulants; I48.91 Unspecified atrial fibrillation; R07.9 Chest pain, unspecified; R79.1 Abnormal coagulation profile
CPT/HCPCS: 36415; 70450; 71045; 80053; 81003; 81015; 82550; 83690; 83735; 83880; 84484; 85025; 85610; 85730; 87070; 87077; 87086; 87147; 87186; 87205; 93005; 96361; 96374; 99284; J2405

== ENCOUNTER → 2025-01-27 13:53 | Outpatient (CLI) | payer OTHER, SELFPAY ==
--- NOTE | 2025-01-27 13:55 | DI.CT.S_ITS ---
PROCEDURE: CT IVP A/P W/WO INDICATIONS: 74 y/o M w/ gross hematuria, eval upper tracts. TECHNIQUE: Optional 5 mm thick noncontrast images acquired from the diaphragm to the symphysis pubis. After the administration of intravenous contrast, 5 mm thick images acquired from the diaphragm to the symphysis pubis after a 10-minute delay. 2 mm thick coronal and sagittal reformats were then performed of the kidneys and ureters. For radiation dose reduction, the following was used: automated exposure control, adjustment of mA and/or kV according to patient size. COMPARISON: None. FINDINGS: Image quality: Diagnostic. Kidneys and Ureters: Both kidneys are normal in size, without hydronephrosis or nephrolithiasis. No perinephric fat stranding. There is normal bilateral renal enhancement. Renal calyces appear normal in morphology when filled with contrast. Opacified portions of both ureters demonstrate normal caliber Bladder: Bladder wall thickness is normal. No calcified bladder stones. OTHER: Lower chest: Unremarkable. Liver: No solid mass. Gallbladder: Previously resected. Biliary ducts: No biliary dilation. Pancreas: No ductal dilation. Spleen: Size is within normal limits. Adrenal Glands: No adrenal nodules. Stomach and Bowel: Normal colonic caliber, without significant wall thickening. Peritoneum: No abnormal intraperitoneal fluid. No free air. Ventral Wall: No ventral hernia but there is a right lateral body wall abnormality allowing a moderate amount of adjacent colon to even trait laterally, and there is adjacent apparent body wall mash and multiple surgical clips in that area indicating prior herniorrhaphy procedure. There is an unexpected associated finding of an ovoid soft tissue masslike structure that contains small foci of scattered radiodensities within, measuring up to 4.1 cm AP, 9.6 cm transverse, and approximately 5.2 cm craniocaudad. A prior CT including this area is not currently found in the local PACS system. Abdominal Nodes: No retroperitoneal or mesenteric adenopathy by size criteria. Vessels: Aorta and inferior vena cava are normal in size. PELVIS: Pelvic Organs: Unremarkable. Pelvic Nodes: No enlarged lymph nodes. Miscellaneous: No inguinal hernias are seen. Bones: No aggressive osseous abnormality. IMPRESSION: 1. No hydronephrosis or nephrolithiasis, no urinary tract urothelial mass is found. 2. Body wall defect on the right adjacent to the right upper quadrant, with postsurgical changes consistent with herniorrhaphy mesh material. The ovoid soft tissue masslike structure containing high density internal foci is of indeterminate etiology. Presumably there are prior CT scans that include this area but not currently available in the local PACS system. This masslike structure may have been previously present and may represent a postoperative complication. Obtaining prior comparison CTs is recommended. 3. Prior cholecystectomy. Dictated by: Ivan Botello M.D. on 01/28/2025 at 10:47 Approved by: Ivan Botello M.D. on 01/28/2025 at 11:06
== END ==
PROVIDERS: PCP Internal Medicine; Referring Provider Urology; Visit Provider Urology
DX: R31.0 Gross hematuria (principal); R19.01 Right upper quadrant abdominal swelling, mass and lump; Z90.49 Acquired absence of other specified parts of digestive tract
CPT/HCPCS: 74178; Q9967

== ENCOUNTER 2025-02-03 16:15 | Emergency (ER) | payer OTHER, SELFPAY ==
[2025-02-03 16:17] VITALS: BP 117/68; PULSE 89; RESP 20; TEMP 36.4; O2SAT 96; BMI 40.4
--- NOTE | 2025-02-03 16:28 | DI.RAD.S_ITS ---
PROCEDURE: XR CHEST 1V INDICATIONS: Chest Pain TECHNIQUE: One view of the chest was acquired. COMPARISON: [facility], CR, XR CHEST 1V, 10/12/2024, 12:10. FINDINGS: Surgical changes and devices: None. Lungs and pleura: Lungs are clear. No pleural effusions or pneumothorax. Mediastinum: Mediastinal contours appear normal. Heart size is mildly enlarged. Bones and chest wall: No suspicious bony lesions. Overlying soft tissues appear unremarkable. IMPRESSION: No acute cardiopulmonary pathology. Dictated by: Ruben Nguyen M.D. on 02/03/2025 at 17:14 Approved by: Ruben Nguyen M.D. on 02/03/2025 at 17:14
--- NOTE | 2025-02-03 16:38 | EKG_ITS ---
[facility] [address], [place] [address] Test Date: 2025-02-03 Pat Name: Papa Medina Department: [facility] Room: Gender: Male Youth Officer: : 1950 Requested By: Order Number: [id number] Reading MD: Andrew Frazier MD Measurements Intervals [place] Rate: 91 P: [place]: QRS: -9 QRSD: 102 T: 15 QT: 350 QTc: 430 Interpretive Statements Atrial fibrillation Electronically Signed On 02-04-2025 7:23:42 PDT by Andrew Frazier MD
[2025-02-03 17:01] LABS: Add Manual Diff / Slide Review NO; Basophils Absolute Auto 0 /uL (0-100); Basophils Percent Auto 0.5 % (0-2); Eosinophils Absolute Auto 200 /uL (0-450); Eosinophils Percent Auto 2.5 % (2-4); Hematocrit 38.2 % (41-53); Hemoglobin 12.6 g/dL (13.5-17.5); Lymphocytes Absolute Auto 1000 /uL (1100-4500); Lymphocytes Percent Auto 13.5 % (25-40); Mean Corpuscular HGB Conc 33.1 % (30-36); Mean Corpuscular Hemoglobin 30.3 PG (26-34); Mean Corpuscular Volume 91.4 fL (80-100); Monocytes Absolute Auto 700 /uL (0-900); Monocytes Percent Auto 9.7 % (3-14); Neutrophils Absolute Auto 5200 /uL (1500-7000); Neutrophils Percent Auto 73.8 % (50-75); Platelet Count 200 X10^3/uL (150-400); Red Blood Cell Count 4.18 X10^6/uL (4.5-5.9); Red Cell Distribution Width 16.3 % (11.6-14.8); White Blood Cell Count 7.1 X10^3/uL (4.5-11.0)
[2025-02-03 17:15] LABS: Lactate (Lactic Acid) 0.6 mmol/L (0.7-2.1)
[2025-02-03 17:16] LABS: Alanine Aminotransferase 53 IU/L (<50); Albumin 4.1 g/dL (3.5-5.0); Albumin Globulin Ratio 1.4 (1.0-2.8); Alkaline Phosphatase 73 U/L (38-126); Aspartate Aminotransferase 56 IU/L (17-59); BUN Creatinine Ratio 23.1 (6-22); Bilirubin Total 0.6 mg/dL (0.2-1.3); Blood Urea Nitrogen 25 mg/dL (9-20); Carbon Dioxide 23 mmol/L (22-32); Chloride 109 mmol/L (98-107); Creatine Kinase 63 U/L (55-170); Estimated Glomerular Filt Rate > 60 mL/min (>60); Glucose 85 mg/dL (70-99); HEMOLYSIS < 15 (0-50); Lipase 75 U/L (23-300); Magnesium 1.8 mg/dL (1.6-2.3); Potassium 4.2 mmol/L (3.4-5.1); Sodium 138 mmol/L (137-145); Total Protein 7.1 g/dL (6.3-8.2)
[2025-02-03 17:25] LABS: INR 4.2 (0.9-1.3); Prothrombin Time 45.5 SECONDS (9.4-12.5)
[2025-02-03 17:27] LABS: NT-proBNP (BNP-Adult 18+) 1520 pg/mL (<450); Troponin I < 0.012 ng/mL (0.01-0.034)
[2025-02-03 17:28] LABS: PTT Partial Thromboplastin Tim 53 SECONDS (25.1-36.5)
--- NOTE | 2025-02-03 18:08 | ED.WEAKNESS ---
HPI - Weakness General Chief complaint: Weakness Stated complaint: low blood pressure, fatigue, weakness Time Seen by Provider: 02/03/25 18:06 Mode of arrival: Ambulatory History of Present Illness HPI Narrative: 74-year-old male with history of atrial fibrillation on chronic warfarin anticoagulation, no recent dose changes, has had recent increase in his weight, and per instructions from PCP had restarted his Lasix that was discontinued last month, taking 20 mg daily instead of his usual 40 mg daily that he used to be on, he has lost 3 lb thus far in the last 5 days. He has generalized weakness today, and had low blood pressure systolic blood pressure 89 reading at home. He denies any fevers or chills. He denies chest pain shortness of breath. His leg swelling is about the same, though it his weight is decreasing. No change in medications besides of the Lasix restart recalled. He does not admit to any nosebleeds, black or red stools, red urine. He denies painful urination or frequency of urination. Related Data Home Medications Medication Instructions Recorded Confirmed calcium citrate (Calcitrate) ##0 08/24/16 01/22/25 multivitamin (Multiple Vitamins ##0 08/24/16 01/22/25 tablet) atorvastatin 20 mg tablet 20 mg PO DAILY 03/13/24 01/22/25 lisinopril 5 mg tablet 5 mg PO DAILY 03/13/24 01/22/25 metoprolol tartrate 25 mg tablet 25 mg PO BID 03/13/24 01/22/25 warfarin 5 mg tablet 5 mg PO DAILY 03/13/24 01/22/25 acetaminophen 500 mg tablet 500 mg PO QID PRN 01/22/25 01/22/25 (Tylenol Extra Strength) antiarthritic combination no.2 900 mg PO 01/22/25 01/22/25 mg tablet (glucosamine-chondroitin) ascorbic acid (vitamin C) 1,000 mg 1 g PO DAILY 01/22/25 01/22/25 capsule cyanocobalamin (vitamin B-12) 5,000 mcg PO DAILY 01/22/25 01/22/25 5,000 mcg capsule ferrous sulfate 325 mg (65 mg 325 mg PO BID 01/22/25 01/22/25 iron) tablet (Feosol) furosemide 20 mg tablet 20 mg PO BID PRN 01/22/25 01/22/25 gabapentin 300 mg capsule 600 mg PO TID 01/22/25 01/22/25 (Neurontin) potassium chloride 10 mEq 10 meq PO DAILY PRN 01/22/25 01/22/25 capsule,extended release Previous Rx's Medication Instructions Recorded cefuroxime axetil 500 mg tablet 500 mg PO BID #14 tabs 02/03/25 Allergies Allergy/AdvReac Type Severity Reaction Status Date / Time Sulfa (Sulfonamide Allergy Unknown Can't Verified 03/16/24 13:08 Antibiotics) remmeber, [SULFA (SULFONAMIDE maybe ANTIBIOTICS)] swelling. narcotic meds Allergy Unknown hallucinati Uncoded 03/16/24 13:08 ons Patient History Medical History Hx of osteoarthritis Hx of primary hypertension Surgical History Hx of circumcision Hx of gastric bypass Hx of cholecystectomy History of back surgery Family History Father Cancer Grandmother CVA (cerebral vascular accident) Social History marital status: number of children: 1 Smoking Status: Never smoker caffeine: Yes Type(s) of exercise: walking frequency: daily duration: > 90 minutes/day Smoking Status: Never smoker alcohol intake frequency: a few times a month Exam Narrative Exam Narrative: GENERAL: Well-developed patient, in mild distress. HEAD: Atraumatic. Normocephalic. EYES: Pupils equal round and reactive. Extraocular motions intact. No scleral icterus. No injection or drainage. ENT: Nose without bleeding, purulent drainage. Throat without erythema, tonsillar hypertrophy or exudate. Airway patent. NECK: Trachea midline. Non tender CARDIOVASCULAR: Regular rate and rhythm without murmurs, gallops, or rubs. RESPIRATORY: Clear to auscultation. Breath sounds equal bilaterally. No wheezes, rales, or rhonchi. GASTROINTESTINAL: Abdomen soft, non-tender, nondistended. EXTREMITIES: No edema or joint tenderness. BACK: Nontender without deformity or crepitance. No flank tenderness. NEURO: AOx3. Motor functions grossly nonfocal SKIN: No rash or erythema of visible areas Initial Vital Signs Initial Vital Signs: Vital Signs Temperature 97.6 F 02/03/25 16:17 Pulse Rate 89 02/03/25 16:17 Respiratory Rate 20 02/03/25 16:17 Blood Pressure 117/68 02/03/25 16:17 Pulse Oximetry 96 02/03/25 16:17 Oxygen Delivery Method Room Air 02/03/25 16:17 Course Orders Ordered: Discontinued Medications Ceftriaxone Sodium 1,000 mg/ (Sodium Chloride) 100 mls @ 200 mls/hr IV NOW ONE Stop: 02/03/25 19:55 Last Infusion: 02/03/25 20:43 Dose: Infused Documented By: Admin: 02/03/25 20:01 Dose: 200 mls/hr Documented By: BONIFACIO Phytonadione (Phytonadione (Vit K1) 5 Mg Tablet) 5 mg PO NOW ONE Stop: 02/03/25 20:02 Last Admin: 02/03/25 20:22 Dose: 5 mg Documented By: BONIFACIO Vital Signs Vital signs: Vital Signs - 8 hr 02/03/25 16:17 02/03/25 18:47 Temperature 97.6 F Pulse Rate 89 80 Respiratory Rate 20 13 Blood Pressure 117/68 Pulse Oximetry 96 98 Oxygen Delivery Method Room Air MDM - Weakness Lab Data Attestation: I reviewed the patient's lab results. Lab results narrative: White blood cell count 7100, hemoglobin 12.6, platelets adequate. Glucose 85. BUN 25 with creatinine 1.08 normal renal function. Serum CO2 23 normal. Electrolytes unremarkable. Slight ALT elevation, other liver functions normal. Lipase normal. Troponin negative/unmeasurable. BNP 1520 similar to October 19, 2024 value. INR 4.2 elevated, takes warfarin. 02/03/25 16:45 02/03/25 16:45 Labs: Lab Results 02/03/25 02/03/25 02/03/25 Range/Units 16:45 18:30 18:33 WBC 7.1 (4.5-11.0) X10^3/uL RBC 4.18 L (4.5-5.9) X10^6/uL Hgb 12.6 L (13.5-17.5) g/dL Hct 38.2 L (41-53) % MCV 91.4 (80-100) fL MCH 30.3 (26-34) PG MCHC 33.1 (30-36) % RDW 16.3 H (11.6-14.8) % Plt Count 200 (150-400) X10^3/uL Neut % (Auto) 73.8 (50-75) % Lymph % (Auto) 13.5 L (25-40) % [place] % (Auto) 9.7 (3-14) % Eos % (Auto) 2.5 (2-4) % Baso % (Auto) 0.5 (0-2) % Neut # (Auto) 5200 (8900-7149) /uL Lymph # (Auto) 1000 L (6678-0078) /uL [place] # (Auto) 700 (0-900) /uL Eos # (Auto) 200 (0-450) /uL Baso # (Auto) 0 (0-100) /uL PT 45.5 H (9.4-12.5) SECONDS INR 4.2 H (0.9-1.3) APTT 53 H (25.1-36.5) SECONDS Sodium 138 (137-145) mmol/L Potassium 4.2 (3.4-5.1) mmol/L Chloride 109 H (98-107) mmol/L Carbon Dioxide 23 (22-32) mmol/L BUN 25 H (9-20) mg/dL Creatinine 1.08 (0.66-1.25) mg/dL Estimated GFR > 60 (>60) mL/min BUN/Creatinine Ratio 23.1 H (6-22) Glucose 85 (70-99) mg/dL Lactate 0.6 L (0.7-2.1) mmol/L Calcium 9.0 (8.4-10.2) mg/dL Magnesium 1.8 (1.6-2.3) mg/dL Total Bilirubin 0.6 (0.2-1.3) mg/dL AST 56 (17-59) IU/L ALT 53 H (<50) IU/L Alkaline Phosphatase 73 (38-126) U/L Total Creatine Kinase 63 (55-170) U/L Troponin I < 0.012 < 0.012 (0.01-0.034) ng/mL NT-Pro-B Natriuret Pep 1520 H (<450) pg/mL Total Protein 7.1 (6.3-8.2) g/dL Albumin 4.1 (3.5-5.0) g/dL Globulin 3.0 (1.7-4.1) g/dL Albumin/Globulin Ratio 1.4 (1.0-2.8) Lipase 75 (23-300) U/L Urine Color Urine Appearance Urine pH (4.5-8.0) Ur Specific [place] (1.000-1.035) Urine Protein (Negative) Urine Glucose (UA) (Negative) g/dL Urine Ketones (NEGATIVE) Urine Occult Blood (Negative) Urine Nitrate (Negative) Urine Bilirubin (NEGATIVE) Urine Urobilinogen (0.2) E.U./dL Ur Leukocyte Esterase (NEGATIVE) Urine RBC (0-5/HPF) Urine WBC (0-5/HPF) Ur Squamous Epith Cells (0-5/HPF) Urine Bacteria (None) Ur Culture Indicated? Vol Urine Centrifuged SARS-CoV-2 (PCR) Negative (Negative) Influenza A (RT-PCR) Flu a negative (NEGATIVE) Influenza B (RT-PCR) Flu b negative (NEGATIVE) RSV (PCR) Negative (Negative) 02/03/25 Range/Units 18:35 WBC (4.5-11.0) X10^3/uL RBC (4.5-5.9) X10^6/uL Hgb (13.5-17.5) g/dL Hct (41-53) % MCV (80-100) fL MCH (26-34) PG MCHC (30-36) % RDW (11.6-14.8) % Plt Count (150-400) X10^3/uL Neut % (Auto) (50-75) % Lymph % (Auto) (25-40) % [place] % (Auto) (3-14) % Eos % (Auto) (2-4) % Baso % (Auto) (0-2) % Neut # (Auto) (4216-6998) /uL Lymph # (Auto) (0299-5798) /uL [place] # (Auto) (0-900) /uL Eos # (Auto) (0-450) /uL Baso # (Auto) (0-100) /uL PT (9.4-12.5) SECONDS INR (0.9-1.3) APTT (25.1-36.5) SECONDS Sodium (137-145) mmol/L Potassium (3.4-5.1) mmol/L Chloride (98-107) mmol/L Carbon Dioxide (22-32) mmol/L BUN (9-20) mg/dL Creatinine (0.66-1.25) mg/dL Estimated GFR (>60) mL/min BUN/Creatinine Ratio (6-22) Glucose (70-99) mg/dL Lactate (0.7-2.1) mmol/L Calcium (8.4-10.2) mg/dL Magnesium (1.6-2.3) mg/dL Total Bilirubin (0.2-1.3) mg/dL AST (17-59) IU/L ALT (<50) IU/L Alkaline Phosphatase (38-126) U/L Total Creatine Kinase (55-170) U/L Troponin I (0.01-0.034) ng/mL NT-Pro-B Natriuret Pep (<450) pg/mL Total Protein (6.3-8.2) g/dL Albumin (3.5-5.0) g/dL Globulin (1.7-4.1) g/dL Albumin/Globulin Ratio (1.0-2.8) Lipase (23-300) U/L Urine Color Yellow Urine Appearance Clear Urine pH 5.5 (4.5-8.0) Ur Specific [place] 1.010 (1.000-1.035) Urine Protein Negative (Negative) Urine Glucose (UA) Negative (Negative) g/dL Urine Ketones Negative (NEGATIVE) Urine Occult Blood 1+ H (Negative) Urine Nitrate Negative (Negative) Urine Bilirubin Negative (NEGATIVE) Urine Urobilinogen 0.2 (0.2) E.U./dL Ur Leukocyte Esterase 1+ H (NEGATIVE) Urine RBC 0-1/hpf (0-5/HPF) Urine WBC 5-10/hpf H (0-5/HPF) Ur Squamous Epith Cells None seen (0-5/HPF) Urine Bacteria Many (>30) H (None) Ur Culture Indicated? Specimen cultured Vol Urine Centrifuged 10ml (spun) SARS-CoV-2 (PCR) (Negative) Influenza A (RT-PCR) (NEGATIVE) Influenza B (RT-PCR) (NEGATIVE) RSV (PCR) (Negative) Imaging Data Chest x-ray: Radiologist Impression: Close Chest X-Ray (Signed) Ruben Nguyen - 02/03/25 Launch?Image [address] [address] XRay Report Signed Patient: Papa Medina MR#: [id number] : 1950 Acct:[id number] Age/Sex: 74 / M Date of Service: 02/03/25 Loc: ED Accession Number: [id number] Procedure: XR chest 1V Ordering Provider: Shane Driscoll MD PROCEDURE: XR CHEST 1V INDICATIONS: Chest Pain TECHNIQUE: One view of the chest was acquired. COMPARISON: [facility], CR, XR CHEST 1V, 10/12/2024, 12:10. FINDINGS: Surgical changes and devices: None. Lungs and pleura: Lungs are clear. No pleural effusions or pneumothorax. Mediastinum: Mediastinal contours appear normal. Heart size is mildly enlarged. Bones and chest wall: No suspicious bony lesions. Overlying soft tissues appear unremarkable. IMPRESSION: No acute cardiopulmonary pathology. Dictated by: Ruben Nguyen M.D. on 02/03/2025 at 17:14 Approved by: Ruben Nguyen M.D. on 02/03/2025 at 17:14 ECG Data Attestation: I personally reviewed and interpreted this ECG as follows: Interpretation: Atrial fibrillation with ventricular rate 91, no obvious ST segment elevation or depression changes. QRS 102, QTC 430. [facility] Narrative Medical decision making narrative: 74-year-old male with generalized weakness, EKG atrial fibrillation without rapid ventricular response, no obvious acute ischemic changes. Initial troponin negative. Lab data: White blood cell count 7100, hemoglobin 12.6, platelets adequate. Glucose 85. BUN 25 with creatinine 1.08 normal renal function. Serum CO2 23 normal. Electrolytes unremarkable. Slight ALT elevation, other liver functions normal. Lipase normal. Troponin negative/unmeasurable. BNP 1520 similar to October 19, 2024 value. INR 4.2 elevated, takes warfarin. Oral vitamin K. Interval repeat troponin also negative. INR elevated, on warfarin noted, no active bleeding obvious. Advised to stop tonight's and tomorrow's dose and recheck on Saturday morning with his PCP. Urinalysis suspicious for infection, urine culture requested. IV ceftriaxone. We will prescribe Ceftin which is less likely of the cephalosporins to interact with warfarin. Prescription for 7 day course sent to his pharmacy. Recheck urine culture results also advised with his PCP on Saturday. Return precautions discussed. Discharge Plan Departure Patient Disposition: Home Clinical Impression: Generalized weakness, Urinary tract infection, Over-anticoagulated Activity Restrictions/Additional Instructions: Generalized weakness. History of atrial fibrillation for which you are taking warfarin, no recent dose changes recalled. Recent restart of Lasix with increased weight gain, at lower dose than previous dose. Electrolyte studies not particularly suggestive of severe dehydration. EKG and serial blood testing not suggestive of heart attack at this time. Urinalysis suspicious for infection, urine culture requested. IV antibiotics initiated, we will give prescription for Ceftin further antibiotic, prescription sent to your pharmacy. INR elevated 4.2 noted, oral dose of vitamin K, hold tonight's dose of warfarin and tomorrow's dose of warfarin, recheck INR blood tests in clinic on Saturday morning with your regular provider. No obvious signs or symptoms of active bleeding at this time. Call your regular provider for further dosing recommendations. Also consider checking in the results of your urine culture at that time. Return earlier to this/nearest emergency department for any change worsening symptoms or any concerns prior. Prescriptions: New cefuroxime axetil 500 mg tablet 500 mg PO BID Qty: 14 0RF No Action metoprolol tartrate 25 mg tablet 25 mg PO BID atorvastatin 20 mg tablet 20 mg PO DAILY warfarin 5 mg tablet 5 mg PO DAILY lisinopril 5 mg tablet 5 mg PO DAILY multivitamin [Multiple Vitamins] tablet Qty: 0 calcium citrate [Calcitrate] 200 mg (950 mg) tablet Qty: 0 acetaminophen [Tylenol Extra Strength] 500 mg tablet 500 mg PO QID PRN ascorbic acid (vitamin C) 1,000 mg capsule 1 g PO DAILY cyanocobalamin (vitamin B-12) 5,000 mcg capsule 5,000 mcg PO DAILY furosemide 20 mg tablet 20 mg PO BID PRN gabapentin [Neurontin] 300 mg capsule 600 mg PO TID glucosamine-chondroitin 900 mg tablet PO ferrous sulfate [Feosol] 325 mg (65 mg iron) tablet 325 mg PO BID potassium chloride 10 mEq capsule, extended release 10 meq PO DAILY PRN Referrals: Prudence Cota DO [Primary Care Provider] - Stand Alone Forms: Patient Portal/API/Survey
[2025-02-03 18:47] VITALS: PULSE 80; RESP 13; O2SAT 98
[2025-02-03 18:51] LABS: Appearance Urine UA CLEAR; Bilirubin Urine UA NEGATIVE (NEGATIVE); Color Urine UA YELLOW; Glucose Urine UA NEGATIVE (Negative); Ketones Urine UA NEGATIVE (NEGATIVE); Leukocyte Esterase Urine UA 1+ (NEGATIVE); Nitrite Urine UA NEGATIVE (Negative); Occult Blood Urine UA 1+ (Negative); Protein Urine UA NEGATIVE (Negative); Urobilinogen Urine UA 0.2 E.U./dL (0.2); pH Urine UA 5.5 (4.5-8.0)
[2025-02-03 19:00] VITALS: BP 131/81; PULSE 82; RESP 16; O2SAT 97
[2025-02-03 19:01] LABS: RBC Urine 0-1/HPF (0-5/HPF); Urine Volume 10mL (spun)
[2025-02-03 19:02] LABS: Bacteria Urine Many (>30); Culture Indicated Urine Specimen Cultured; Squamous Epithelial Cell Urine None Seen (0-5/HPF); WBC Urine 5-10/HPF (0-5/HPF)
[2025-02-03 19:18] LABS: Troponin I < 0.012 ng/mL (0.01-0.034)
[2025-02-03 19:24] LABS: Influenza A - CEPHEID Flu A NEGATIVE (NEGATIVE); Influenza B - CEPHEID Flu B NEGATIVE (NEGATIVE); Respiratory Syncytial Virus Negative (Negative)
[2025-02-03 19:25] LABS: COVID-19 CEPHEID 4-PLEX PCR Negative (Negative)
[2025-02-03 19:30] VITALS: BP 133/79; PULSE 81; RESP 16; O2SAT 96
[2025-02-03 20:00] VITALS: BP 129/96; PULSE 81; RESP 21; O2SAT 98
[2025-02-03] MEDS: cefTRIAXone 1,000 MG in SODIUM CHLORIDE 0.9% 100 ML 200 MG IV (20:01)
[2025-02-03] MEDS: PHYTONADIONE (VIT K1) 5 MG TABLET PO (20:22)
[2025-02-03 20:30] VITALS: BP 137/73; PULSE 82; RESP 16; O2SAT 98
== END 2025-02-03 20:51 | disposition home or self-care (01) ==
PROVIDERS: Emergency Medicine; Emergency Provider Emergency Medicine; PCP Internal Medicine
DX: R53.1 Weakness (principal); N39.0 Urinary tract infection, site not specified; I48.91 Unspecified atrial fibrillation; Z79.01 Long term (current) use of anticoagulants; I10 Essential (primary) hypertension; R79.1 Abnormal coagulation profile
CPT/HCPCS: 0241U; 36415; 71045; 80053; 81001; 82550; 83605; 83690; 83735; 83880; 84484; 85025; 85610; 85730; 87077; 87086; 87186; 93005; 93010; 96365; 99284; J0696

== ENCOUNTER → 2025-02-25 10:18 | Outpatient (CLI) | payer OTHER, SELFPAY | PROVIDERS: PCP Internal Medicine; Visit Provider Urology | DX: R31.0 Gross hematuria (principal); K46.9 Unspecified abdominal hernia without obstruction or gangrene; Z68.39 Body mass index [BMI] 39.0-39.9, adult | CPT/HCPCS: 52000; 81002; 87077; 87086; 87186 ==

== ENCOUNTER → 2025-03-26 12:24 | Outpatient (CLI) | payer OTHER, SELFPAY ==
[2025-03-26 12:57] LABS: Bilirubin Urine UA 1+ (NEGATIVE); Glucose Urine UA NEGATIVE (Negative); Leukocyte Esterase Urine UA TRACE (NEGATIVE); Occult Blood Urine UA 3+ (Negative); Protein Urine UA 3+ (Negative)
[2025-03-26 12:58] LABS: Appearance Urine UA TURBID
[2025-03-26 12:59] LABS: Color Urine UA RED
[2025-03-26 13:01] LABS: Urine Volume 10mL (spun)
[2025-03-26 13:03] LABS: Ictotest Urine Negative (Negative)
[2025-03-26 13:05] LABS: Bacteria Urine Moderate (10-30); RBC Urine >100/HPF (0-5/HPF); Squamous Epithelial Cell Urine None Seen (0-5/HPF); WBC Urine 10-30/HPF (0-5/HPF)
[2025-03-26 13:06] LABS: Culture Indicated Urine Specimen Cultured
== END ==
PROVIDERS: PCP Internal Medicine; Referring Provider Urology; Visit Provider Urology
DX: R31.0 Gross hematuria (principal)
CPT/HCPCS: 81001; 87077; 87086; 87186

== ENCOUNTER 2025-03-26 17:43 | Emergency (ER) | payer OTHER, SELFPAY ==
[2025-03-26 18:10] VITALS: BP 136/67; PULSE 101; RESP 17; TEMP 37.5; O2SAT 97; BMI 38.7
--- NOTE | 2025-03-26 20:35 | PC.NURSE ---
c/o right flank pain with hematuria noted in catheter hx of UTIs
[2025-03-26 21:18] LABS: Appearance Urine UA CLOUDY; Bilirubin Urine UA NEGATIVE (NEGATIVE); Color Urine UA YELLOW; Glucose Urine UA NEGATIVE (Negative); Ketones Urine UA TRACE (NEGATIVE); Leukocyte Esterase Urine UA 2+ (NEGATIVE); Nitrite Urine UA POSITIVE (Negative); Occult Blood Urine UA 3+ (Negative); Protein Urine UA 2+ (Negative); Specific Gravity Urine UA 1.015 (1.000-1.035); pH Urine UA 5.5 (4.5-8.0)
[2025-03-26 21:25] LABS: Bacteria Urine Many (>30); Culture Indicated Urine Specimen Cultured; RBC Urine 10-30/HPF (0-5/HPF); Squamous Epithelial Cell Urine 1-5 /HPF (0-5/HPF); Urine Volume 10mL (spun); WBC Urine 10-30/HPF (0-5/HPF)
--- NOTE | 2025-03-26 21:29 | ED_ITS ---
HPI - Male Genitourinary General Chief complaint: Urogenital-Male Stated complaint: blood in urine in pain Time Seen by Provider: 03/26/25 18:25 Source: patient Mode of arrival: Ambulatory History of Present Illness HPI Narrative: 74-year-old gentleman history of atrial fibrillation on warfarin presents with right lower back pain radiating to right lower quadrant along with fever chills and body aches that started today along with hematuria. Patient attempted to see the urologist today but was unable to and started having increasing pain and came into the ER to be evaluated. Patient denies chest pain shortness breath cough runny nose sore throat vomiting or diarrhea. Other than what is stated 14 point review of system is negative. Related Data Home Medications ?Medication ?Instructions ?Recorded ?Confirmed calcium citrate (Calcitrate) ##0 08/24/16 03/19/25 multivitamin (Multiple Vitamins ##0 08/24/16 03/19/25 tablet) atorvastatin 20 mg tablet 20 mg PO DAILY 03/13/2403/01 lisinopril 5 mg tablet 5 mg PO DAILY 03/13/2403/19 metoprolol tartrate 25 mg tablet 25 mg PO BID 03/13/24 03/19/25 warfarin 5 mg tablet 5 mg PO DAILY 03/13/2403/19 antiarthritic combination no.2 900 mg PO 01/22/2503/01 mg tablet (glucosamine-chondroitin) ascorbic acid (vitamin C) 1,000 mg 1 g PO DAILY 03/19/25 capsule cyanocobalamin (vitamin B-12) 5,000 mcg PO DAILY 01/2203/19/25 5,000 mcg capsule ferrous sulfate 325 mg (65 mg 325 mg PO BID 01/22/25 0 03/19/25 iron) tablet (Feosol) furosemide 20 mg tablet 20 mg PO BID PRN 01/22/25 gabapentin 300 mg capsule 600 mg PO TID 01/22/2503/19 (Neurontin) potassium chloride 10 mEq 10 meq PO DAILY PRN 01/22/25 03/19/25 capsule,extended release Previous Rx's ?Medication ?Instructions ?Recorded cephalexin 500 mg capsule 500 mg PO BID #10 caps 03/26 Allergies Allergy/AdvReac Type Severity Reaction Status Date / Time Sulfa (Sulfonamide Allergy Unknown Can't Verified 03/26/25 18:18 Antibiotics) (SULFA remmeber, (SULFONAMIDE ANTIBIOTICS)) maybe swelling. narcotic meds Allergy Unknown hallucinati Uncoded 03/26/25 18:18 ons Review of Systems Review of Systems ROS Unobtainable: All systems reviewed & are unremarkable except as noted in HPI and below Patient History Medical History Hx of osteoarthritis Hx of primary hypertension Surgical History Hx of circumcision Hx of gastric bypass Hx of cholecystectomy History of back surgery Family History Father Cancer Grandmother CVA (cerebral vascular accident) Social History marital status: number of children: 1 caffeine: Yes Type(s) of exercise: walking frequency: daily duration: > 90 minutes/day alcohol intake frequency: a few times a month Exam Narrative Exam Narrative: GENERAL: [74] year old patient appears stated age. Well-developed patient, in mild distress. HEAD: Atraumatic. Normocephalic. EYES: Pupils equal round and reactive. Extraocular motions intact. No scleral icterus. No injection or drainage. NECK: Trachea midline. Non tender CARDIOVASCULAR: Regular rate and rhythm without murmurs, gallops, or rubs. RESPIRATORY: Clear to auscultation. Breath sounds equal bilaterally. No wheezes, rales, or rhonchi. GASTROINTESTINAL: Abdomen soft, non-tender, nondistended. EXTREMITIES: No edema or joint tenderness. BACK: Nontender without deformity or crepitance. No flank tenderness. NEURO: AOx3. SKIN: No rash or erythema of visible areas Initial Vital Signs Initial Vital Signs: Vital Signs Temperature 99.5 F 03/26/25 18:10 Pulse Rate 101 H 03/26/25 18:10 Respiratory Rate 17 03/26/25 18:10 Blood Pressure 136/67 03/26/25 18:10 Pulse Oximetry 97 03/26/25 18:10 Oxygen Delivery Method Room Air 03/26/25 18:10 Course Orders Ordered: ED Orders 03/26/25 20:46 Urinalysis and Microscopic Stat Vital Signs Vital signs: Vital Signs - 8 hr 03/26/25 18:10 Temperature 99.5 F Pulse Rate 101 H Respiratory Rate 17 Blood Pressure 136/67 Pulse Oximetry 97 Oxygen Delivery Method Room Air MDM - Male Genitourinary Lab Data Labs: Lab Results 03/26/25 Range/Units 20:46 Urine Color Yellow Urine Appearance Cloudy Urine pH 5.5 (4.5-8.0) Ur Specific [place] 1.015 (1.000-1.035) Urine Protein 2+ H (Negative) Urine Glucose (UA) Negative (Negative) g/dL Urine Ketones Trace H (NEGATIVE) Urine Occult Blood 3+ H (Negative) Urine Nitrate Positive H (Negative) Urine Bilirubin Negative (NEGATIVE) Urine Urobilinogen 1.0 (0.2) E.U./dL Ur Leukocyte Esterase 2+ H (NEGATIVE) Urine RBC 10-30/hpf H (0-5/HPF) Urine WBC 10-30/hpf H (0-5/HPF) Ur Squamous Epith Cells 1-5 /hpf (0-5/HPF) Urine Bacteria Many (>30) H (None) Ur Culture Indicated? Specimen cultured Vol Urine Centrifuged 10ml (spun) [facility] Narrative Medical decision making narrative: Vital signs, nurse triage note, medication list, previous ER visits and all imaging studies reviewed. UA showed positive nitrites +3 blood 10-30 RBC 10-30 WBC and many bacteria. Patient given Rocephin shot and will be DC on cephalexin antibiotics. Differential diagnosis include kidney infection UTI kidney stone. Discharge Plan Departure Patient Disposition: Home Clinical Impression: Acute UTI Instructions: DI for Urinary Tract Infection (UTI) Activity Restrictions/Additional Instructions: Return with new or worsening symptoms. Take your medicines as directed and keep hydrated. Prescriptions: New cephalexin 500 mg capsule 500 mg PO BID Qty: 10 0RF No Action metoprolol tartrate 25 mg tablet 25 mg PO BID atorvastatin 20 mg tablet 20 mg PO DAILY warfarin 5 mg tablet 5 mg PO DAILY lisinopril 5 mg tablet 5 mg PO DAILY multivitamin [Multiple Vitamins] tablet Qty: 0 calcium citrate [Calcitrate] 200 mg (950 mg) tablet Qty: 0 ascorbic acid (vitamin C) 1,000 mg capsule 1 g PO DAILY cyanocobalamin (vitamin B-12) 5,000 mcg capsule 5,000 mcg PO DAILY furosemide 20 mg tablet 20 mg PO BID PRN gabapentin [Neurontin] 300 mg capsule 600 mg PO TID glucosamine-chondroitin 900 mg tablet PO ferrous sulfate [Feosol] 325 mg (65 mg iron) tablet 325 mg PO BID potassium chloride 10 mEq capsule, extended release 10 meq PO DAILY PRN Referrals: Prudence Cota DO [Primary Care Provider, Internal Medicine] Stand Alone Forms: Patient Portal/API
[2025-03-26] MEDS: cefTRIAXone 2,000 MG VIAL 1000 MG IM (21:40)
[2025-03-26] MEDS: LIDOCAINE 1% (PF) 5 ML INJ (21:40)
[2025-03-26 22:09] VITALS: BP 134/60; PULSE 90; RESP 20; O2SAT 98
== END 2025-03-26 22:11 | disposition home or self-care (01) ==
PROVIDERS: Emergency Provider Family Medicine; PCP Internal Medicine
DX: N39.0 Urinary tract infection, site not specified (principal); B96.20 Unspecified Escherichia coli [E. coli] as the cause of diseases classified elsewhere
CPT/HCPCS: 81001; 87077; 87086; 87186; 96372; 99283; 99284; J0696

== ENCOUNTER → 2025-04-01 14:32 | Outpatient (CLI) | payer OTHER, SELFPAY ==
[2025-04-01 14:58] LABS: Appearance Urine UA CLEAR; Bilirubin Urine UA NEGATIVE (NEGATIVE); Color Urine UA YELLOW; Glucose Urine UA NEGATIVE (Negative); Ketones Urine UA NEGATIVE (NEGATIVE); Leukocyte Esterase Urine UA TRACE (NEGATIVE); Nitrite Urine UA NEGATIVE (Negative); Occult Blood Urine UA NEGATIVE (Negative); Protein Urine UA NEGATIVE (Negative); Specific Gravity Urine UA 1.025 (1.000-1.035); Urobilinogen Urine UA 0.2 E.U./dL (0.2); pH Urine UA 5.5 (4.5-8.0)
[2025-04-01 15:07] LABS: Culture Indicated Urine Cult Not Indicated
== END ==
PROVIDERS: PCP Internal Medicine; Referring Provider Internal Medicine; Visit Provider Urology
DX: N39.0 Urinary tract infection, site not specified (principal)
CPT/HCPCS: 81001